=== PATIENT | male | born 1955 | race Caucasian/White ===

== ENCOUNTER 2020-06-12 07:39 | Outpatient (REF) | payer OTHER, SELFPAY ==
[2020-06-12 11:39] LABS: Glucose Urine UA NEG (NEG); Leukocyte Esterase Urine NEG (NEG); Nitrite Urine NEG (NEG); PH 5.5 (5.0-8.0); Specific Gravity - Urine >= 1.030 (1.005-1.025); Urine Blood NEG (NEG); Urine Ketones NEG (NEG); Urine Protein NEG (NEG-TRACE)
[2020-06-12 11:40] LABS: Hematocrit 41.7 % (42-52); Hemoglobin 13.5 g/dl (14.0-18.0); Mean Corpuscular HGB Conc 32.4 g/dl (31.0-36.0); Mean Corpuscular Hemoglobin 31.7 pg (27.0-33.0); Mean Corpuscular Volume 97.9 fL (80-98); Platelet Count 206 X10*3/uL (160-400); Red Blood Count 4.26 X10*6/uL (4.60-5.80); White Blood Count 5.8 X10*3/uL (4.8-10.8)
[2020-06-12 11:56] LABS: Appearance Urine CLEAR; Color Urine YELLOW
[2020-06-12 12:10] LABS: Mucus Urine 3+ /LPF; RBC Urine 0 /HPF (0); Squamous Epithelial Cell Urine TRACE /LPF; WBC Urine 0 /HPF (0-4)
[2020-06-12 12:21] LABS: Prostate Specific Antigen Scr 0.35 ng/mL (<0.05-4.0)
[2020-06-12 12:25] LABS: Alanine Aminotransferase 25 U/L (0-40); Albumin Level 4.2 g/dL (3.5-5.0); Alkaline Phosphatase 88 U/L (39-117); Anion Gap 13 (12-20); Aspartate Amino Transferase 20 U/L (5-37); Bilirubin Total 1.2 mg/dL (0.0-1.0); Blood Urea Nitrogen 25 mg/dL (9-16); Calcium 8.9 mg/dL (8.4-10.2); Carbon Dioxide 27 mmol/L (22-29); Chloride 107 mmol/L (96-108); Cholesterol 233 mg/dL; Estimated Glomerular Filt Rate > 60; Glucose Fasting 92 mg/dL (60-99); HDL Cholesterol 54 mg/dL; LDL Cholesterol Calculated 157 mg/dl; Potassium 4.3 mmol/L (3.3-5.1); Sodium 143 mmol/L (135-145); Total Protein 6.6 g/dL (6.5-8.0); Triglycerides 112 mg/dL
== END 2020-06-12 07:40 | disposition home or self-care (01) ==
LOC: HO.HMGCLDS 07:39
PROVIDERS: PCP Internal Medicine; Visit Provider Internal Medicine
DX: Z00.00 Encounter for general adult medical examination without abnormal findings (principal); Z13.220 Encounter for screening for lipoid disorders; Z12.5 Encounter for screening for malignant neoplasm of prostate
CPT/HCPCS: 36415; 80053; 80061; 81001; 84153; 85027

== ENCOUNTER 2021-04-16 08:44 | Outpatient (REF) | payer MEDICARE, SELFPAY ==
[2021-04-16 12:20] LABS: Alanine Aminotransferase 30 U/L (0-40); Albumin Level 4.2 g/dL (3.5-5.0); Alkaline Phosphatase 99 U/L (39-117); Anion Gap 12 (12-20); Aspartate Amino Transferase 16 U/L (5-37); Blood Urea Nitrogen 22 mg/dL (9-16); Calcium 9.5 mg/dL (8.4-10.2); Carbon Dioxide 29 mmol/L (22-29); Chloride 105 mmol/L (96-108); Cholesterol 188 mg/dL; Estimated Glomerular Filt Rate > 60; Glucose Fasting 89 mg/dL (60-99); HDL Cholesterol 51 mg/dL; LDL Cholesterol Calculated 115 mg/dl; Potassium 4.5 mmol/L (3.3-5.1); Sodium 141 mmol/L (135-145); Total Protein 6.5 g/dL (6.5-8.0); Triglycerides 113 mg/dL; Uric Acid 5.5 mg/dL (3.4-7.0)
== END 2021-04-16 08:45 | disposition home or self-care (01) ==
LOC: HO.HMGCLDS 08:44
PROVIDERS: PCP Internal Medicine; Visit Provider Internal Medicine
DX: E78.5 Hyperlipidemia, unspecified (principal); M10.9 Gout, unspecified
CPT/HCPCS: 36415; 80053; 80061; 84550

== ENCOUNTER 2022-06-11 08:39 | Outpatient (REF) | payer MEDICARE, SELFPAY ==
[2022-06-11 12:04] LABS: Alanine Aminotransferase 22 U/L (0-40); Albumin Level 4.1 g/dL (3.5-5.0); Alkaline Phosphatase 95 U/L (39-117); Anion Gap 11 (12-20); Aspartate Amino Transferase 19 U/L (5-37); Bilirubin Total 1.2 mg/dL (0.0-1.0); Blood Urea Nitrogen 21 mg/dL (9-16); Calcium 9.3 mg/dL (8.4-10.2); Carbon Dioxide 28 mmol/L (22-29); Chloride 106 mmol/L (96-108); Cholesterol 196 mg/dL; Estimated Glomerular Filt Rate > 60; Glucose Fasting 80 mg/dL (60-99); HDL Cholesterol 55 mg/dL; LDL Cholesterol Calculated 125 mg/dl; Potassium 4.4 mmol/L (3.3-5.1); Sodium 141 mmol/L (135-145); Total Protein 6.4 g/dL (6.5-8.0); Triglycerides 83 mg/dL
== END 2022-06-11 08:40 | disposition home or self-care (01) ==
LOC: HO.HMGCLDS 08:39
PROVIDERS: PCP Internal Medicine; Visit Provider Internal Medicine
DX: Z00.00 Encounter for general adult medical examination without abnormal findings (principal); E78.5 Hyperlipidemia, unspecified
CPT/HCPCS: 36415; 80053; 80061

== ENCOUNTER 2022-09-26 13:55 | Outpatient (REF) | payer MEDICARE, SELFPAY ==
[2022-09-26 17:15] LABS: MANUAL DIFF FLAG NO
[2022-09-26 17:23] LABS: Basophils Absolute Auto 0.1 X10*3/uL (0.0-0.2); Basophils Percent Auto 0.8 % (0-2); Eosinophils Absolute Auto 0.1 X10*3/uL (0.0-0.4); Eosinophils Percent Auto 0.8 % (0-4); Hematocrit 40.1 % (42.0-52.0); Hemoglobin 12.8 g/dl (14.0-18.0); Imm Gran Abs Auto 0.03 X10*3/uL (0.00-0.03); Imm Gran Pct Auto 0.4 % (0.0-0.4); Lymphocytes Absolute Auto 1.5 X10*3/uL (1.2-4.9); Lymphocytes Percent Auto 19.9 % (20-40); Mean Corpuscular HGB Conc 31.9 g/dl (31.0-36.0); Mean Corpuscular Hemoglobin 31.3 pg (27.0-33.0); Mean Platelet Volume 12.4 fL (9.4-12.4); Monocytes Absolute Auto 0.6 X10*3/uL (0.1-1.2); Monocytes Percent Auto 7.5 % (2-11); Neutrophils Absolute Auto 5.4 x10*3/uL (2.0-8.3); Neutrophils Percent Auto 70.6 % (45-73); Platelet Count 263 X10*3/uL (160-400); Red Blood Count 4.09 X10*6/uL (4.60-5.80); Red Cell Distribution Width 13.1 % (11.0-16.0); White Blood Count 7.6 X10*3/uL (4.8-10.8)
[2022-09-26 17:47] LABS: Alanine Aminotransferase 14 U/L (0-40); Albumin Level 4.4 g/dL (3.5-5.0); Alkaline Phosphatase 101 U/L (39-117); Anion Gap 15 (12-20); Aspartate Amino Transferase 16 U/L (5-37); Bilirubin Total 1.1 mg/dL (0.0-1.0); Blood Urea Nitrogen 26 mg/dL (9-16); Calcium 9.8 mg/dL (8.4-10.2); Carbon Dioxide 26 mmol/L (22-29); Chloride 103 mmol/L (96-108); Estimated Glomerular Filt Rate > 60; Glucose Random 156 mg/dL (60-115); Potassium 4.7 mmol/L (3.3-5.1); Sodium 139 mmol/L (135-145); Total Protein 7.1 g/dL (6.5-8.0)
[2022-09-26 18:03] LABS: TSH reflex Free T4 0.23 uIU/mL (0.32-4.0); Vitamin D 25-OH Total 35.8 ng/mL (>30)
[2022-09-26 19:07] LABS: Free T4 (Free Thyroxine) 0.85 ng/dL (0.71-1.85)
[2022-10-01 14:18] LABS: Calcium (PTHI) 9.6 mg/dL (8.6-10.3); PTHI 88 pg/mL (16-77)
== END 2022-09-26 13:56 | disposition home or self-care (01) ==
LOC: HO.HMGCLDS 13:55
PROVIDERS: PCP Internal Medicine; Visit Provider Internal Medicine
DX: S72.001A Fracture of unspecified part of neck of right femur, initial encounter for closed fracture (principal); E78.5 Hyperlipidemia, unspecified
CPT/HCPCS: 36415; 80053; 82306; 83970; 84439; 84443; 85025

== ENCOUNTER 2022-10-03 07:54 | Outpatient (REF) | payer MEDICARE, SELFPAY ==
--- NOTE | ~2022-10-03 | MM_ITS ---
EXAMINATION: BONE DENSITOMETRY CLINICAL INDICATION: Fracture of unspecified part of neck of right femur. COMPARISON: This is the patient's baseline examination. TECHNIQUE: Using a [employer] DXA System (software version: 13.1) manufactured by [employer], dual-energy x-ray absorptiometry was performed of the lumbar spine and left hip. The images are of good technical quality. Summary results are attached. FINDINGS: AP SPINE L1-L4: BMD 1.057 g/cm2, Z-score -0.7, T-score -1.4, osteopenia. LEFT FEMUR, NECK: BMD 0.667 g/cm2, Z-score -1.8, T-score -3.1, osteoporosis. LEFT FEMUR, TOTAL: BMD 0.752 g/cm2, Z-score -1.7, T-score -2.4, osteopenia. IDENTIFIED RISK FACTORS: Low body weight, history of fracture (adult). HISTORY OF FRACTURE: Hip. MEDICATIONS: Multivitamin. MM/XR DEXA axial skeleton IMPRESSION: 1. DIAGNOSIS: Severe osteoporosis based on the lowest T-score value of -3.1 in the femoral neck and history of fracture of hip applying World Health Organization criteria. 2. 10-YEAR FRACTURE RISK PREDICTION, FRAX: According to the guidelines, FRAX calculation should only be performed on patients in the osteopenia bone density category. Therefore, FRAX was not performed on this patient. 3. Treatment Recommendations: NOF guidelines recommend consideration for treatment in postmenopausal women and men age 50 and older presenting with the following: -A hip or vertebral (clinical or morphometric) fracture. -T-score less than or equal to -2.5 at the femoral neck or spine after appropriate evaluation to exclude secondary causes. -Low bone mass at the hip or spine and a 10-year fracture probability by FRAX of greater than or equal to 3% for hip fracture or greater than or equal to 20% for major osteoporotic fracture based on the [place] adapted WHO algorithm. 4. Other Recommendations: All treatment decisions require clinical judgment and consideration of individual patient factors, including patient preferences, comorbidities, previous drug use, risk factors not captured in the FRAX model (e.g. frailty, falls, vitamin D deficiency, increased bone turnover, interval significant decline in bone density) and possible under or overestimation of fracture risk by FRAX. Additional medical evaluation for secondary cause of low bone mineral density may be appropriate. FUTURE SCAN RECOMMENDATION: People with diagnosed cases of osteoporosis or at high risk for fracture should have regular bone mineral density tests. For patients eligible for Medicare, routine testing is allowed once every 2 years. The testing frequency can be increased to one year for patients who have rapidly progressing disease, those who are receiving or discontinuing medical therapy to restore bone mass, or have additional risk factors.
== END 2022-10-03 07:55 | disposition home or self-care (01) ==
LOC: HO.MAMMO 07:54
PROVIDERS: PCP Internal Medicine; Visit Provider Internal Medicine
DX: M81.0 Age-related osteoporosis without current pathological fracture (principal); S72.001A Fracture of unspecified part of neck of right femur, initial encounter for closed fracture; X58.XXXA Exposure to other specified factors, initial encounter; Y93.9 Activity, unspecified; Y92.9 Unspecified place or not applicable; Y99.9 Unspecified external cause status
CPT/HCPCS: 77080

== ENCOUNTER 2022-11-18 09:56 | Outpatient (AMB) | payer MEDICARE, SELFPAY ==
[2022-11-18 10:19] VITALS: BP 118/68; PULSE 65; O2SAT 98; BMI 23.8
--- NOTE | 2022-11-18 10:19 | A.OFFPC_ITS ---
Vital Signs 11/18/22 10:19 Height 5 ft 9 in Weight 161 lb BMI 23.8 BP 118/68 Blood Pressure Location Lt brachial Position Sitting Pulse 65 Pulse Source Pulse Oximeter Pulse Oximetry (%) 98 Oxygen Delivery Method Room Air Intake Visit Reasons: Discuss osteoporosis treatment Intake Note: Pt is here today for a follow up visit. Allergies Penicillins Allergy (Unknown, Verified 11/18/22 10:19) Unknown amoxicillin Allergy (Verified 11/18/22 10:19) very fatique erythromycin base Adverse Reaction (Unknown, Verified 11/18/22 10:19) stomach issues Medication List - Last Reconciled 11/18/22 by Tamiko Astudillo MD atorvastatin 10 mg PO .TIW lorazepam 0.5 mg PO BEDTIME PRN Tobacco use date assessed: 11/18/22 HPI Discuss osteoporosis treatment HPI Details Pt presents for osteoporosis. Pt could not tolerate alendronate developed diarrhea. Patient has been exercising regularly taking vitamin-D 3 and calcium supplement. Hyperlipidemia is controlled on statin [facility] Medical History (Updated 11/18/22 @ 11:03 by Tamiko Astudillo MD) Abdominal pain Annual physical exam Chronic sinusitis Gout Hyperlipidemia Surgical History H/O colonoscopy Family History Father CVD (cardiovascular disease) Mother No problems noted. Social History Housing: House Patient Tobacco Use Status: Never used Tobacco e-Cigarette/Vaping Use: Never Used Current occupational status: employed Cognitive needs: No Hearing needs: No Vision needs: Yes Questionnaire Thrive Questionnaire Date Thrive assessed: 09/26/22 DAVIDA-7 AMB Questionnaire DAVIDA-7 Date DAVIDA - 7 assessed: 09/26/22 Source: Developed by Drs. Sudarshan Shipman, Elise Cook, Ammon Mcqueen and colleagues, with an educational steven from [employer]. Review of Systems Const All systems reviewed & are unremarkable except as noted in HPI and below Reports no additional complaints Eyes Reports no additional complaints ENT Reports no additional complaints Card Reports no additional complaints Resp Reports no additional complaints GI Reports no additional complaints Reports no additional complaints Physical exam (Primary Care) Vital Signs: Last Vital Signs Pulse 65 11/18/22 10:19 BP 118/68 11/18/22 10:19 Pulse Ox 98 11/18/22 10:19 Oxygen Delivery Method Room Air 11/18/22 10:19 BMI result Body Mass Index 23.8 Tobacco/Smoking Status: Tobacco use Status Tobacco use date assessed 11/18/22 11/18/22 10:20 Patient Tobacco Use Status Never used Tobacco 11/18/22 10:20 e-Cigarette/Vaping Use Never Used 11/18/22 10:20 Thrive Assessment: Date of Thrive Assessment Date Thrive assessed 09/26/22 11/18/22 10:20 Neck Neck: Yes supple Resp Effort & Inspection: normal respiratory effort Auscultation: clear to auscultation bilaterally Cardio Rhythm: regular rhythm Heart sounds: S1 normal heart sound present and S2 normal heart sound present Assessment and Plan Assessment & Plan (1) Hyperglycemia: Code(s): R73.9 - Hyperglycemia, unspecified Plan: Return for fasting labs including A1c, ADA diet discussed with the patient (2) Osteoporosis: Comment: DEXA T score -3.1, 09/2022 , history of R hip fracture, intolerant to Fosamax (diarrhea) Code(s): M81.0 - Age-related osteoporosis without current pathological fracture Plan: Patient is intolerant to alendronate Reclast infusion will be scheduled. He will continue with Reclast infusion next year and have repeat DEXA in 2 years (3) Hyperlipidemia: Code(s): E78.5 - Hyperlipidemia, unspecified Plan: Continue statin, return for physical in February Orders: Orders Comprehensive [place]. Panel Fast Today R73.9 - Hyperglycemia, unspecified Hemoglobin A1c Today R73.9 - Hyperglycemia, unspecified TSH reflex Free T4 Today R73.9 - Hyperglycemia, unspecified Medications: New zoledronic thvi-lozpzvky-mxzng 5 mg/100 mL (Reclast) 100 ml intravenously once; 100 mL 0RF zoledronic zfbl-zgiajfvo-udwkb 5 mg/100 mL (Reclast) 100 ml intravenously once; 100 mL 0RF Discontinued alendronate Discontinued Reason: Doctor's Order 70 mg PO QWEEK 14 tabs 3RF Coding Level of Care Code Est Pt Level 4 (86552) Diagnoses Hyperglycemia R73.9 Osteoporosis M81.0 Hyperlipidemia E78.5
== END 2022-11-18 11:03 | disposition home or self-care (01) ==
PROVIDERS: PCP Internal Medicine; Visit Provider Internal Medicine
DX: R73.9 Hyperglycemia, unspecified (principal); M81.0 Age-related osteoporosis without current pathological fracture; E78.5 Hyperlipidemia, unspecified
CPT/HCPCS: 99214

== ENCOUNTER 2022-11-27 08:09 | Outpatient (REF) | payer MEDICARE, SELFPAY ==
[2022-11-27 11:41] LABS: Estimated Average Glucose 103 mg/dL; Hemoglobin A1c % 5.2 %
[2022-11-27 12:10] LABS: Alanine Aminotransferase 14 U/L (0-40); Albumin Level 4.2 g/dL (3.5-5.0); Alkaline Phosphatase 94 U/L (39-117); Anion Gap 11 (12-20); Aspartate Amino Transferase 16 U/L (5-37); Blood Urea Nitrogen 23 mg/dL (9-16); Calcium 9.3 mg/dL (8.4-10.2); Carbon Dioxide 24 mmol/L (22-29); Chloride 110 mmol/L (96-108); Estimated Glomerular Filt Rate > 60; Glucose Fasting 87 mg/dL (60-99); Potassium 4.1 mmol/L (3.3-5.1); Sodium 141 mmol/L (135-145); TSH reflex Free T4 0.33 uIU/mL (0.32-4.0); Total Protein 6.7 g/dL (6.5-8.0)
== END 2022-11-27 08:10 | disposition home or self-care (01) ==
LOC: HO.HMGCLDS 08:09
PROVIDERS: PCP Internal Medicine; Visit Provider Internal Medicine
DX: R73.9 Hyperglycemia, unspecified (principal)
CPT/HCPCS: 36415; 80053; 83036; 84443

== ENCOUNTER 2022-12-05 07:58 | Outpatient (AMB) | payer MEDICARE, SELFPAY ==
[2022-12-05 08:11] VITALS: BP 128/70; PULSE 64; O2SAT 98; BMI 23.6
--- NOTE | 2022-12-05 08:11 | MHC.PC.OV ---
Vital Signs 12/05/22 08:11 Height 5 ft 9 in Weight 160 lb BMI 23.6 BP 128/70 Blood Pressure Location Lt brachial Position Sitting Pulse 64 Pulse Source Pulse Oximeter Pulse Oximetry (%) 98 Oxygen Delivery Method Room Air Intake Visit Reasons: Follow up to discuss medication Intake Note: Pt is here today for a follow up visit to discuss Reclast medication. Allergies Penicillins Allergy (Unknown, Verified 12/05/22 08:26) Unknown amoxicillin Allergy (Verified 12/05/22 08:26) very fatique erythromycin base Adverse Reaction (Unknown, Verified 12/05/22 08:26) stomach issues Tobacco use date assessed: 11/18/22 HPI Follow up to discuss medication HPI Details Patient presents to discuss treatment for osteoporosis. He could not tolerate Fosamax, caused diarrhea. Patient is concerned about Reclast infusion and prefers to start regular exercise and repeat DEXA in 2 years. [facility] Medical History Abdominal pain Annual physical exam Chronic sinusitis Gout Hyperlipidemia Surgical History H/O colonoscopy Family History Father CVD (cardiovascular disease) Mother No problems noted. Social History Housing: House Patient Tobacco Use Status: Never used Tobacco e-Cigarette/Vaping Use: Never Used Current occupational status: employed Cognitive needs: No Hearing needs: No Vision needs: Yes Questionnaire Thrive Questionnaire Date Thrive assessed: 09/26/22 DAVIDA-7 AMB Questionnaire DAVIDA-7 Date DAVIDA - 7 assessed: 09/26/22 Source: Developed by Drs. Sudarshan Shipman, Elise Cook, Ammon Mcqueen and colleagues, with an educational steven from [employer]. Review of Systems Const All systems reviewed & are unremarkable except as noted in HPI and below Reports no additional complaints Eyes Reports no additional complaints ENT Reports no additional complaints Card Reports no additional complaints Resp Reports no additional complaints GI Reports no additional complaints Physical exam (Primary Care) Vital Signs: Last Vital Signs Pulse 64 12/05/22 08:11 BP 128/70 12/05/22 08:11 Pulse Ox 98 12/05/22 08:11 Oxygen Delivery Method Room Air 12/05/22 08:11 BMI result Body Mass Index 23.6 Tobacco/Smoking Status: Tobacco use Status Tobacco use date assessed 11/18/22 12/05/22 08:11 Patient Tobacco Use Status Never used Tobacco 12/05/22 08:11 e-Cigarette/Vaping Use Never Used 12/05/22 08:11 Thrive Assessment: Date of Thrive Assessment Date Thrive assessed 09/26/22 12/05/22 08:11 Resp Effort & Inspection: normal respiratory effort Auscultation: clear to auscultation bilaterally Cardio Rhythm: regular rhythm Heart sounds: S1 normal heart sound present and S2 normal heart sound present Assessment and Plan Assessment & Plan (1) Osteoporosis: Comment: DEXA T score -3.1, 09/2022 , history of R hip fracture, intolerant to Fosamax (diarrhea), patient declined Reclast infusion. He will start regular exercise and repeat DEXA in 2 years Code(s): M81.0 - Age-related osteoporosis without current pathological fracture Coding Level of Care Code Est Pt Level 3 (93068) Diagnoses Osteoporosis M81.0
== END 2022-12-05 08:46 | disposition home or self-care (01) ==
PROVIDERS: PCP Internal Medicine; Visit Provider Internal Medicine
DX: M81.0 Age-related osteoporosis without current pathological fracture (principal)
CPT/HCPCS: 99213

== ENCOUNTER 2023-03-31 13:34 | Outpatient (AMB) | payer MEDICARE, SELFPAY ==
--- NOTE | 2023-03-31 13:55 | A.OFFPC_ITS ---
Vital Signs 03/31/23 13:56 Height 5 ft 9 in Weight 166 lb BMI 24.5 BP 122/64 Blood Pressure Location Lt brachial Position Sitting Pulse 68 Pulse Source Pulse Oximeter Pulse Oximetry (%) 96 Oxygen Delivery Method Room Air Intake Visit Reasons: Discuss Labs Intake Note: Pt is here today for a follow up visit. Allergies Penicillins Allergy (Unknown, Verified 03/31/23 13:58) Unknown amoxicillin Allergy (Verified 03/31/23 13:58) very fatique erythromycin base Adverse Reaction (Unknown, Verified 03/31/23 13:58) stomach issues Medication List - Last Reconciled 03/31/23 by Tamiko Astudillo MD alendronate (Fosamax) 70 mg PO QWEEK atorvastatin 10 mg PO .TIW lorazepam 0.5 mg PO BEDTIME PRN Tobacco use date assessed: 11/18/22 HPI Discuss Labs HPI Details Pt presents for f/u hyperlipid, stable on Atorvastatin. PFSH Medical History Abdominal pain Annual physical exam Chronic sinusitis Gout Hyperlipidemia Surgical History H/O colonoscopy Family History Father CVD (cardiovascular disease) Mother No problems noted. Social History Housing: House Patient Tobacco Use Status: Never used Tobacco e-Cigarette/Vaping Use: Never Used Current occupational status: employed Cognitive needs: No Hearing needs: No Vision needs: Yes Questionnaire Thrive Questionnaire Date Thrive assessed: 09/26/22 DAVIDA-7 AMB Questionnaire DAVIDA-7 Date DAVIDA - 7 assessed: 09/26/22 Source: Developed by Drs. Sudarshan Shipman, Elise Cook, Ammon Mcqueen and colleagues, with an educational steven from [employer]. Review of Systems Const All systems reviewed & are unremarkable except as noted in HPI and below Reports no additional complaints Eyes Reports no additional complaints ENT Reports no additional complaints Card Reports no additional complaints Resp Reports no additional complaints GI Reports no additional complaints Reports no additional complaints Physical exam (Primary Care) Vital Signs: Last Vital Signs Pulse 68 03/31/23 13:56 BP 122/64 03/31/23 13:56 Pulse Ox 96 03/31/23 13:56 Oxygen Delivery Method Room Air 03/31/23 13:56 BMI result Body Mass Index 24.5 Tobacco/Smoking Status: Tobacco use Status Tobacco use date assessed 11/18/22 03/31/23 14:01 Patient Tobacco Use Status Never used Tobacco 03/31/23 14:01 e-Cigarette/Vaping Use Never Used 03/31/23 14:01 Thrive Assessment: Date of Thrive Assessment Date Thrive assessed 09/26/22 03/31/23 14:01 Const General: no acute distress HENMT Head: Yes normal to inspection Face and sinus: Yes normal facial exam Neck Neck: Yes no lymphadenopathy and Yes supple Resp Effort & Inspection: normal respiratory effort Auscultation: clear to auscultation bilaterally Cardio Rhythm: regular rhythm Heart sounds: S1 normal heart sound present and S2 normal heart sound present GI Inspection: Yes normal to inspection Palpation (GI): Soft to palpation Percussion: Yes normal to percussion Assessment and Plan Assessment & Plan (1) Osteoporosis: Comment: DEXA T score -3.1, 09/2022 , history of R hip fracture, try Fosamax 04/04 Code(s): M81.0 - Age-related osteoporosis without current pathological fracture Plan: start Fosamax and cont vit D (2) Hyperglycemia: Code(s): R73.9 - Hyperglycemia, unspecified Plan: A1C is 5.2, ADA diet, (3) Hip fracture, right: Comment: 07/03, s/p ORIF, [facility] Code(s): S72.001A - Fracture of unspecified part of neck of right femur, initial encounter for closed fracture Plan: cont exercise (4) Hyperlipidemia: Code(s): E78.5 - Hyperlipidemia, unspecified Plan: cont [place] (5) Annual physical exam: Code(s): Z00.00 - Encounter for general adult medical examination without abnormal findings Orders: Orders Comprehensive [place]. Panel Fast 3 Months E78.5 - Hyperlipidemia, unspecified, M81.0 - Age-related osteoporosis without current pathological fracture, R73.9 - Hyperglycemia, unspecified, S72.001A - Fracture of unspecified part of neck of right femur, initial encounter for closed fracture, Z00.00 - Encounter for general adult medical examination without abnormal findings Lipid Panel 3 Months E78.5 - Hyperlipidemia, unspecified, M81.0 - Age-related osteoporosis without current pathological fracture, R73.9 - Hyperglycemia, unspecified, S72.001A - Fracture of unspecified part of neck of right femur, initial encounter for closed fracture, Z00.00 - Encounter for general adult medical examination without abnormal findings UA w Microscopic 3 Months E78.5 - Hyperlipidemia, unspecified, M81.0 - Age- related osteoporosis without current pathological fracture, R73.9 - Hyperglycemia, unspecified, S72.001A - Fracture of unspecified part of neck of right femur, initial encounter for closed fracture, Z00.00 - Encounter for general adult medical examination without abnormal findings Complete Blood Count Auto Diff 3 Months E78.5 - Hyperlipidemia, unspecified, M81.0 - Age-related osteoporosis without current pathological fracture, R73.9 - Hyperglycemia, unspecified, S72.001A - Fracture of unspecified part of neck of right femur, initial encounter for closed fracture, Z00.00 - Encounter for general adult medical examination without abnormal findings PSA,Total (Free>4and<10) 3 Months E78.5 - Hyperlipidemia, unspecified, M81.0 - Age-related osteoporosis without current pathological fracture, R73.9 - Hyperglycemia, unspecified, S72.001A - Fracture of unspecified part of neck of right femur, initial encounter for closed fracture, Z00.00 - Encounter for general adult medical examination without abnormal findings Vitamin D 25-OH Total 3 Months E78.5 - Hyperlipidemia, unspecified, M81.0 - Age- related osteoporosis without current pathological fracture, R73.9 - Hyperglycemia, unspecified, S72.001A - Fracture of unspecified part of neck of right femur, initial encounter for closed fracture, Z00.00 - Encounter for general adult medical examination without abnormal findings IRON PROFILE 3 Months E78.5 - Hyperlipidemia, unspecified, M81.0 - Age-related osteoporosis without current pathological fracture, R73.9 - Hyperglycemia, unspecified, S72.001A - Fracture of unspecified part of neck of right femur, initial encounter for closed fracture, Z00.00 - Encounter for general adult medical examination without abnormal findings TSH reflex Free T4 3 Months E78.5 - Hyperlipidemia, unspecified, M81.0 - Age- related osteoporosis without current pathological fracture, R73.9 - Hyperglycemia, unspecified, S72.001A - Fracture of unspecified part of neck of right femur, initial encounter for closed fracture, Z00.00 - Encounter for general adult medical examination without abnormal findings Collagen Crosslinks NTX 3 Months E78.5 - Hyperlipidemia, unspecified, M81.0 - Age-related osteoporosis without current pathological fracture, R73.9 - Hyperglycemia, unspecified, S72.001A - Fracture of unspecified part of neck of right femur, initial encounter for closed fracture, Z00.00 - Encounter for general adult medical examination without abnormal findings Medications: New alendronate (Fosamax) 70 mg PO QWEEK 14 tabs 3RF Coding Level of Care Code Est Pt Level 4 (31576) Diagnoses Osteoporosis M81.0 Hyperglycemia R73.9 Hip fracture, right S72.001A Hyperlipidemia E78.5 Annual physical exam Z00.00
[2023-03-31 13:56] VITALS: BP 122/64; PULSE 68; O2SAT 96; BMI 24.5
== END 2023-03-31 14:51 | disposition home or self-care (01) ==
PROVIDERS: PCP Internal Medicine; Visit Provider Internal Medicine
DX: M81.0 Age-related osteoporosis without current pathological fracture (principal); R73.9 Hyperglycemia, unspecified; S72.001A Fracture of unspecified part of neck of right femur, initial encounter for closed fracture; E78.5 Hyperlipidemia, unspecified; Z00.00 Encounter for general adult medical examination without abnormal findings
CPT/HCPCS: 99214

== ENCOUNTER 2024-01-20 07:48 | Outpatient (REF) | payer MEDICARE, SELFPAY ==
[2024-01-20 09:56] LABS: MANUAL DIFF FLAG NO
[2024-01-20 10:07] LABS: Basophils Percent Auto 0.6 % (0-2); Eosinophils Absolute Auto 0.1 X10*3/uL (0.0-0.4); Eosinophils Percent Auto 1.7 % (0-4); Hematocrit 39.2 % (42.0-52.0); Hemoglobin 12.9 g/dl (14.0-18.0); Imm Gran Abs Auto 0.02 X10*3/uL (0.00-0.03); Imm Gran Pct Auto 0.3 % (0.0-0.4); Lymphocytes Absolute Auto 1.4 X10*3/uL (1.2-4.9); Lymphocytes Percent Auto 21.2 % (20-40); Mean Corpuscular HGB Conc 32.9 g/dl (31.0-36.0); Mean Corpuscular Hemoglobin 32.2 pg (27.0-33.0); Mean Corpuscular Volume 97.8 fL (80.0-98.0); Mean Platelet Volume 12.3 fL (9.4-12.4); Monocytes Absolute Auto 0.6 X10*3/uL (0.1-1.2); Monocytes Percent Auto 9.2 % (2-11); Neutrophils Absolute Auto 4.3 x10*3/uL (2.0-8.3); Platelet Count 245 X10*3/uL (160-400); Red Blood Count 4.01 X10*6/uL (4.60-5.80); Red Cell Distribution Width 13.2 % (11.0-16.0); White Blood Count 6.4 X10*3/uL (4.8-10.8)
[2024-01-20 10:22] LABS: Appearance Urine Clear; Color Urine Yellow; Glucose Urine UA Negative (Negative); Leukocyte Esterase Urine Negative (Negative); Nitrite Urine Negative (Negative); PH 6.5 (5.0-9.0); Specific Gravity - Urine 1.015 (1.005-1.025); Urine Blood Negative (Negative); Urine Ketones Negative (Negative); Urine Protein Negative (Neg-Trace)
[2024-01-20 10:30] LABS: Bacteria Urine None Seen (None Seen); Hyaline Casts Urine 0-2 /LPF (0-2); RBC Urine 0-2 /HPF (0-2); Squamous Epithelial Cell Urine 0-2 /HPF (0-2); WBC Urine 0-5 /HPF (0-5)
[2024-01-20 10:31] LABS: Alanine Aminotransferase 18 U/L (0-40); Albumin Level 4.1 g/dL (3.5-5.0); Alkaline Phosphatase 94 U/L (39-117); Anion Gap 9 (12-20); Aspartate Amino Transferase 18 U/L (5-37); Bilirubin Total 0.8 mg/dL (0.0-1.0); Blood Urea Nitrogen 15 mg/dL (9-16); Carbon Dioxide 29 mmol/L (22-29); Chloride 108 mmol/L (96-108); Cholesterol 174 mg/dL (<200); Estimated Glomerular Filt Rate > 60; Glucose Fasting 91 mg/dL (60-99); HDL Cholesterol 56 mg/dL (>40); Iron 111 mcg/dL (45-160); LDL Cholesterol Calculated 101 mg/dL (<100); Percent Iron Saturation 46 % (15-50); Potassium 4.1 mmol/L (3.3-5.1); Sodium 142 mmol/L (135-145); Total Iron Binding Capacity 243 mcg/dL (228-428); Total Protein 6.5 g/dL (6.5-8.0); Triglycerides 89 mg/dL (<150); Unsaturated Iron Binding 132 ug/dL
[2024-01-20 10:33] LABS: PSA,Total (Free>4and<10) 0.47 ng/mL (0.00-4.00)
[2024-01-20 10:49] LABS: TSH reflex Free T4 0.16 uIU/mL (0.32-4.0)
[2024-01-20 12:24] LABS: Free T4 (Free Thyroxine) 0.97 ng/dL (0.71-1.85)
[2024-01-26 15:19] LABS: N-Telopeptide 35 (see note); NTXCreaRU 108 mg/dL (20-320)
== END 2024-01-20 07:49 | disposition home or self-care (01) ==
LOC: HO.HMGCLDS 07:48
PROVIDERS: PCP Internal Medicine; Visit Provider Internal Medicine
DX: Z00.00 Encounter for general adult medical examination without abnormal findings (principal); M81.0 Age-related osteoporosis without current pathological fracture; R73.9 Hyperglycemia, unspecified; S72.001A Fracture of unspecified part of neck of right femur, initial encounter for closed fracture; E78.5 Hyperlipidemia, unspecified; Z12.5 Encounter for screening for malignant neoplasm of prostate
CPT/HCPCS: 36415; 80053; 80061; 81001; 82306; 82523; 83540; 84153; 84439; 84443; 85025

== ENCOUNTER 2024-01-27 08:45 | Outpatient (AMB) | payer MEDICARE, SELFPAY ==
[2024-01-27 08:55] VITALS: BP 110/68; PULSE 55; O2SAT 96; BMI 24.7
--- NOTE | 2024-01-27 08:55 | MHC.PC.OV ---
Vital Signs 01/27/24 08:55 Height 5 ft 9 in Weight 167 lb BMI 24.7 BP 110/68 Blood Pressure Location Rt brachial Position Sitting Pulse 55 Pulse Source Pulse Oximeter Pulse Oximetry (%) 96 Oxygen Delivery Method Room Air Intake Visit Reasons: Annual PE Intake Note: Pt is here today for PE. Allergies Penicillins Allergy (Unknown, Verified 01/27/24 09:24) Unknown amoxicillin Allergy (Verified 01/27/24 09:24) very fatique erythromycin base Adverse Reaction (Unknown, Verified 01/27/24 09:24) stomach issues Medication List - Last Reconciled 01/27/24 by Tamiko Astudillo MD atorvastatin 10 mg PO .TIW lorazepam 0.5 mg PO BEDTIME PRN Tobacco use date assessed: 01/27/24 Fall risk assessment: 1 Fall in past year Last assessed Fall Risk: 01/27/24 Dental Screening Dental Screen Date: 01/27/24 Did you have a dental visit in the last 12 months?: Yes Did you have a dental problem in the last 6 months where you did not have access to dental care?: No Was dental information given to patient?: Patient has dentist HPI Annual PE HPI Details Pt presents for PE. PFSH Medical History (Updated 01/27/24 @ 11:40 by Tamiko Astudillo MD) Gout Abdominal pain Annual physical exam Chronic sinusitis Hyperlipidemia Surgical History (Updated 01/27/24 @ 11:42 by Tamiko Astudillo MD) H/O colonoscopy Family History Father CVD (cardiovascular disease) Mother No problems noted. Social History Housing: House Patient Tobacco Use Status: Never used Tobacco e-Cigarette/Vaping Use: Never Used service: No Current occupational status: employed Cognitive needs: No Hearing needs: No Vision needs: Yes Questionnaire PHQ-9 Over the last 2 weeks, how often have you been bothered by any of the following problems? 1. Little interest or pleasure in doing things: not at all 2. Feeling down, depressed, or hopeless: not at all 3. Trouble falling or staying asleep, or sleeping too much: not at all 4. Feeling tired or having little energy: several days 5. Poor appetite or overeating: not at all 6. Feeling bad about yourself - or that you are a failure or have let yourself or your family down: not at all 7. Trouble concentrating on things, such as reading the newspaper or watching television: not at all 8. Moving or speaking so slowly that other people could have noticed. Or the opposite - being so fidgety or restless that you have been moving around a lot more than usual: not at all 9. Thoughts that you would be better off or of hurting yourself in some way: not at all Total score: 1 Depression Screening Interpretation: Negative Depression Screening Done: Yes 33452 - PHQ-9 Billing: Yes Source: Developed by Drs. Sudarshan Shipman, Elise Cook, Ammon Mcqueen and colleagues, with an educational steven from [employer]. Thrive Questionnaire Date Thrive assessed: 01/27/24 I am a: Patient What is your living situation today?: I have a steady place to live Within the past 12 months, did the food you bought not last and you didn't have the money to get more?: Never true Within the past 12 months, did you worry whether your food would run out before you got money to buy more?: Never true Do you have trouble paying for medicines?: No Do you have trouble getting transportation to medical appointments?: No Do you have trouble paying your heating and electricity bill?: No Do you have trouble taking care of your child, family member or friend?: No Do you have trouble with day-to-day activities such as bathing, preparing meals, shopping, managing finances, etc.?: No Are you currently unemployed and looking for a job?: No Are you interested in more education?: No Please select the resources that you would like help with: None Currently or been in a relationship where the following occur: No concerns reported THRIVE Score: 0 AUDIT C Alcohol Use Questionnaire (AUDIT-C) 1. How often do you have a drink containing alcohol?: Monthly or less 2. How many drinks containing alcohol do you have on a typical day when you are drinking?: 1 or 2 3. How often do you have six or more drinks on one occasion?: Never Total Score: 1 DAVIDA-7 AMB Questionnaire DAVIDA-7 Date DAVIDA - 7 assessed: 01/27/24 Feeling nervous, anxious, or on edge: 0 = Not at all Not being able to stop or control worryin = Not at all Worrying too much about different things: 0 = Not at all Trouble relaxin = Several days Being so restless that it is hard to sit still: 0 = Not at all Becoming easily annoyed or irritable: 0 = Not at all Feeling afraid as if something awful might happen: 0 = Not at all Total DAVIDA-7 score (0-4 normal; 5-9 mild; 10-14 moderate; 15-21 severe): 1 Source: Developed by Drs. Suadrshan Shipman, Elise Cook, Ammon Mcqueen and colleagues, with an educational steven from [employer]. DAVIDA-7 Assessment Billing DAVIDA-7 Assessment Tool: DAVIDA-7 Assessment 26544 Review of Systems Const All systems reviewed & are unremarkable except as noted in HPI and below Eyes Reports no additional complaints ENT Reports no additional complaints Card Reports no additional complaints Resp Reports no additional complaints GI Reports no additional complaints Reports no additional complaints Physical exam (Primary Care) Vital Signs: Last Vital Signs Pulse 55 01/27/24 08:55 BP 110/68 01/27/24 08:55 Pulse Ox 96 01/27/24 08:55 Oxygen Delivery Method Room Air 01/27/24 08:55 BMI result Body Mass Index 24.7 Tobacco/Smoking Status: Tobacco use Status Tobacco use date assessed 01/27/24 01/27/24 09:27 Patient Tobacco Use Status Never used Tobacco 01/27/24 08:55 e-Cigarette/Vaping Use Never Used 01/27/24 08:55 PHQ-9: PHQ-9 Score PHQ-9: Total score 1 01/27/24 09:27 Depression Screening Interpretation: Negative Thrive Assessment: Date of Thrive Assessment Date Thrive assessed 01/27/24 01/27/24 09:27 Currently or been in a relationship where the following occur: No concerns reported Const General: no acute distress HENMT Head: Yes normal to inspection Ears: hearing grossly normal bilaterally Face and sinus: Yes normal facial exam Throat: Yes posterior oropharynx normal Eyes General: appearance normal, both eyes and all related structures Neck Neck: Yes no lymphadenopathy and Yes supple Resp Effort & Inspection: normal respiratory effort Auscultation: clear to auscultation bilaterally Cardio Rhythm: regular rhythm Heart sounds: S1 normal heart sound present and S2 normal heart sound present GI Inspection: Yes normal to inspection Palpation (GI): Soft to palpation Percussion: Yes normal to percussion Auscultation: normal bowel sounds Coding Level of Care Code Est Pt Prev Care >65y(87795) Diagnoses Hyperthyroidism E05.90 Hip fracture, right S72.001A Osteoporosis M81.0 Annual physical exam Z00.00 H/O colonoscopy Z98.890 Additional Codes DAVIDA-7 Assessment Billing - DAVIDA-7 Assessment Tool: DAVIDA-7 Assessment 65362 ([id number]) Assessment & Plan Assessment & Plan (1) Hyperthyroidism: Comment: Subclinical hyperthyroid Code(s): E05.90 - Thyrotoxicosis, unspecified without thyrotoxic crisis or storm Category: Medical Plan: Obtains thyroid nuclear scan to evaluate for hyperactive nodules, repeat TSH in 6 months and a year (2) Hip fracture, right: Comment: 07/03, s/p ORIF, [facility], Code(s): S72.001A - Fracture of unspecified part of neck of right femur, initial encounter for closed fracture Category: Medical Plan: Patient declined treating osteoporosis, increasing physical activity weight-bearing exercises (3) Osteoporosis: Comment: DEXA T score -3.1, 09/2022 , history of R hip fracture, pt declined tx 01/2024 Code(s): M81.0 - Age-related osteoporosis without current pathological fracture Category: Medical Plan: Patient declined treating osteoporosis. He will continue vitamin-D weight-bearing exercises and repeat DEXA in 1 year (4) Annual physical exam: Code(s): Z00.00 - Encounter for general adult medical examination without abnormal findings Category: Medical Plan: Well-balanced diet regular physical activity discussed with the patient. (5) H/O colonoscopy: Comment: 06/2017 Dr. López [facility] in 7 years Code(s): Z98.890 - Other specified postprocedural states Category: Surgical Plan: Patient is established with GI Orders: Orders NM thyroid w uptake Today E05.90 - Thyrotoxicosis, unspecified without thyrotoxic crisis or storm Vitamin D 25-OH Total 6 Months E05.90 - Thyrotoxicosis, unspecified without thyrotoxic crisis or storm, M81.0 - Age-related osteoporosis without current pathological fracture, R53.83 - Other fatigue, S72.001A - Fracture of unspecified part of neck of right femur, initial encounter for closed fracture Parathyroid Hormone Intact 6 Months E0. - Thyrotoxicosis, unspecified without thyrotoxic crisis or storm, M81.0 - Age-related osteoporosis without current pathological fracture, R53.83 - Other fatigue, S72.001A - Fracture of unspecified part of neck of right femur, initial encounter for closed fracture TSH reflex Free T4 6 Months E0. - Thyrotoxicosis, unspecified without thyrotoxic crisis or storm, M81.0 - Age-related osteoporosis without current pathological fracture, R53.83 - Other fatigue, S72.001A - Fracture of unspecified part of neck of right femur, initial encounter for closed fracture Triiodothyronine T3 Free 6 Months E0. - Thyrotoxicosis, unspecified without thyrotoxic crisis or storm, M81.0 - Age-related osteoporosis without current pathological fracture, R53.83 - Other fatigue, S72.001A - Fracture of unspecified part of neck of right femur, initial encounter for closed fracture Testosterone, Free/Total 6 Months E0. - Thyrotoxicosis, unspecified without thyrotoxic crisis or storm, M81.0 - Age-related osteoporosis without current pathological fracture, R53.83 - Other fatigue, S72.001A - Fracture of unspecified part of neck of right femur, initial encounter for closed fracture Comprehensive [place]. Panel Fast 1 Year - Thyrotoxicosis, unspecified without thyrotoxic crisis or storm, E78.5 - Hyperlipidemia, unspecified, M81.0 - Age-related osteoporosis without current pathological fracture, Z00.00 - Encounter for general adult medical examination without abnormal findings Complete Blood Count Auto Diff 1 Year E0 - Thyrotoxicosis, unspecified without thyrotoxic crisis or storm, E78.5 - Hyperlipidemia, unspecified, M81.0 - Age-related osteoporosis without current pathological fracture, Z00.00 - Encounter for general adult medical examination without abnormal findings Lipid Panel 1 Year - Thyrotoxicosis, unspecified without thyrotoxic crisis or storm, E78.5 - Hyperlipidemia, unspecified, M81.0 - Age-related osteoporosis without current pathological fracture, Z00.00 - Encounter for general adult medical examination without abnormal findings UA w Microscopic 1 Year E05.90 - Thyrotoxicosis, unspecified without thyrotoxic crisis or storm, E78.5 - Hyperlipidemia, unspecified, M81.0 - Age-related osteoporosis without current pathological fracture, Z00.00 - Encounter for general adult medical examination without abnormal findings TSH reflex Free T4 1 Year E05. - Thyrotoxicosis, unspecified without thyrotoxic crisis or storm, E78.5 - Hyperlipidemia, unspecified, M81.0 - Age-related osteoporosis without current pathological fracture, Z00.00 - Encounter for general adult medical examination without abnormal findings Vitamin D 25-OH Total 1 Year E05.90 - Thyrotoxicosis, unspecified without thyrotoxic crisis or storm, E78.5 - Hyperlipidemia, unspecified, M81.0 - Age-related osteoporosis without current pathological fracture, Z00.00 - Encounter for general adult medical examination without abnormal findings
== END 2024-01-27 11:43 | disposition home or self-care (01) ==
PROVIDERS: PCP Internal Medicine; Visit Provider Internal Medicine
DX: E05.90 Thyrotoxicosis, unspecified without thyrotoxic crisis or storm (principal); S72.001A Fracture of unspecified part of neck of right femur, initial encounter for closed fracture; M81.0 Age-related osteoporosis without current pathological fracture; Z00.00 Encounter for general adult medical examination without abnormal findings; Z98.890 Other specified postprocedural states

== ENCOUNTER → 2024-01-27 08:45 | Outpatient (BNVA) | payer MEDICARE, SELFPAY | PROVIDERS: PCP Internal Medicine; Visit Provider Internal Medicine | DX: Z00.01 Encounter for general adult medical examination with abnormal findings (principal); E05.90 Thyrotoxicosis, unspecified without thyrotoxic crisis or storm; S72.001A Fracture of unspecified part of neck of right femur, initial encounter for closed fracture; M81.0 Age-related osteoporosis without current pathological fracture; Z98.890 Other specified postprocedural states | CPT/HCPCS: 96127; 99397 ==

== ENCOUNTER → 2024-03-31 09:10 | Outpatient (REF) | payer MEDICARE, SELFPAY | LOC: HO.NUCMED 09:10 | PROVIDERS: PCP Internal Medicine; Visit Provider Internal Medicine | DX: E05.90 Thyrotoxicosis, unspecified without thyrotoxic crisis or storm (principal) | CPT/HCPCS: 78014; A9512; A9516 ==

== ENCOUNTER → 2024-03-31 09:12 | Outpatient (BNV) | payer MEDICARE, SELFPAY | PROVIDERS: PCP Internal Medicine; Visit Provider Radiology Diagnostic Radiology | DX: I51.7 Cardiomegaly (principal) | CPT/HCPCS: 78014 ==

== ENCOUNTER 2024-12-20 09:18 | Outpatient (AMB) | payer MEDICARE, SELFPAY ==
[2024-12-20 09:20] VITALS: BP 122/70; PULSE 67; RESP 18; TEMP 36.7; O2SAT 99; BMI 23.5
--- NOTE | 2024-12-20 09:20 | MHC.PC.OV ---
Vital Signs 12/20/24 09:20 Height 5 ft 9 in Weight 159 lb BMI 23.5 BP 122/70 Blood Pressure Location Lt brachial Position Sitting Respiration 18 Pulse 67 Pulse Source Pulse Oximeter Temp 98.0 F Temp Source Oral Pulse Oximetry (%) 99 Oxygen Delivery Method Room Air Intake Visit Reasons: feeling dizzy Intake Note: Pt is here today for a sick visit. Pt c/o feeling dizzy and headaches for 2 weeks now. Allergies Penicillins Allergy (Unknown, Verified 12/20/24 09:22) Unknown amoxicillin Allergy (Verified 12/20/24 09:22) very fatique erythromycin base Adverse Reaction (Unknown, Verified 12/20/24 09:22) stomach issues Medication List - Last Reconciled 12/20/24 by Tamiko Astudillo MD atorvastatin 10 mg PO .TIW lorazepam 0.5 mg PO BEDTIME PRN Tobacco use date assessed: 12/20/24 Fall risk assessment: No Falls in past year Last assessed Fall Risk: 12/20/24 Dental Screening Dental Screen Date: 12/20/24 Did you have a dental visit in the last 12 months?: Yes Did you have a dental problem in the last 6 months where you did not have access to dental care?: No Was dental information given to patient?: Patient has dentist HPI feeling dizzy HPI Details Pt c/o nasal and sinus congestion , postnasal drip intermittent headaches getting worse over last few weeks. Patient was diagnosed with seasonal allergies and completed immunotherapy in 2019. Patient was taking Zyrtec but stopped about 6 months ago. Patient has an appointment with the vehicle window tinter next week. He denies fever chills sore throat nasal purulent discharge. Patient reports dyspnea on exertion and feeling tired for the last few months. He denies exercise-induced chest pain palpitations PND or orthopnea but is concerned because his father from a heart attack. Patient has been taking Lipitor for hyperlipidemia [facility] Medical History (Updated 12/20/24 @ 10:01 by Tamiko Astudillo MD) Seasonal allergies GRANT (dyspnea on exertion) Gout Abdominal pain Annual physical exam Chronic sinusitis Hyperlipidemia Surgical History H/O colonoscopy Family History Father CVD (cardiovascular disease) Mother No problems noted. Social History Housing: House Patient Tobacco Use Status: Never used Tobacco e-Cigarette/Vaping Use: Never Used service: No Current occupational status: employed Cognitive needs: No Hearing needs: No Vision needs: Yes Questionnaire PHQ-9 Over the last 2 weeks, how often have you been bothered by any of the following problems? 1. Little interest or pleasure in doing things: not at all 2. Feeling down, depressed, or hopeless: not at all 3. Trouble falling or staying asleep, or sleeping too much: not at all 4. Feeling tired or having little energy: several days 5. Poor appetite or overeating: not at all 6. Feeling bad about yourself - or that you are a failure or have let yourself or your family down: not at all 7. Trouble concentrating on things, such as reading the newspaper or watching television: not at all 8. Moving or speaking so slowly that other people could have noticed. Or the opposite - being so fidgety or restless that you have been moving around a lot more than usual: not at all 9. Thoughts that you would be better off or of hurting yourself in some way: not at all Total score: 1 Depression Screening Interpretation: Negative Depression Screening Done: Yes 88885 - PHQ-9 Billing: Yes Source: Developed by Drs. Sudarshan Shipman, Elise Cook, Ammon Mcqueen and colleagues, with an educational steven from [employer]. Thrive Questionnaire Date Thrive assessed: 12/17/24 I am a: Patient What is your living situation today?: I have a steady place to live Within the past 12 months, did the food you bought not last and you didn't have the money to get more?: Never true Within the past 12 months, did you worry whether your food would run out before you got money to buy more?: Never true Do you have trouble paying for medicines?: No Do you have trouble getting transportation to medical appointments?: No Do you have trouble paying your heating and electricity bill?: No Do you have trouble taking care of your child, family member or friend?: No Do you have trouble with day-to-day activities such as bathing, preparing meals, shopping, managing finances, etc.?: No Are you currently unemployed and looking for a job?: No Are you interested in more education?: No Please select the resources that you would like help with: None Currently or been in a relationship where the following occur: No concerns reported THRIVE Score: 0 AUDIT C Alcohol Use Questionnaire (AUDIT-C) 1. How often do you have a drink containing alcohol?: 2-4 times a month 2. How many drinks containing alcohol do you have on a typical day when you are drinking?: 1 or 2 3. How often do you have six or more drinks on one occasion?: Never Total Score: 2 DAVIDA-7 AMB Questionnaire DAVIDA-7 Date DAVIDA - 7 assessed: 12/20/24 Feeling nervous, anxious, or on edge: 1 = Several days Not being able to stop or control worryin = Not at all Worrying too much about different things: 0 = Not at all Trouble relaxin = Not at all Being so restless that it is hard to sit still: 0 = Not at all Becoming easily annoyed or irritable: 0 = Not at all Feeling afraid as if something awful might happen: 0 = Not at all Total DAVIDA-7 score (0-4 normal; 5-9 mild; 10-14 moderate; 15-21 severe): 1 Source: Developed by Drs. Sudarshan Shipman, Elise Cook, Ammon Mcqueen and colleagues, with an educational steven from [employer]. DAVIDA-7 Assessment Billing DAVIDA-7 Assessment Tool: DAVIDA-7 Assessment 79140 Review of Systems Const All systems reviewed & are unremarkable except as noted in HPI and below Eyes Reports no additional complaints ENT Reports no additional complaints Card Reports no additional complaints Resp Reports no additional complaints GI Reports no additional complaints Reports no additional complaints Physical exam (Primary Care) Vital Signs: Last Vital Signs Temp 98.0 F 12/20/24 09:20 Pulse 67 12/20/24 09:20 Resp 18 12/20/24 09:20 BP 122/70 12/20/24 09:20 Pulse Ox 99 12/20/24 09:20 Oxygen Delivery Method Room Air 12/20/24 09:20 BMI result Body Mass Index 23.5 Tobacco/Smoking Status: Tobacco use Status Tobacco use date assessed 12/20/24 12/20/24 09:28 Patient Tobacco Use Status Never used Tobacco 12/20/24 09:28 e-Cigarette/Vaping Use Never Used 12/20/24 09:20 PHQ-9: PHQ-9 Score PHQ-9: Total score 1 12/20/24 09:28 Depression Screening Interpretation: Negative Thrive Assessment: Date of Thrive Assessment Date Thrive assessed 12/17/24 12/20/24 09:20 Currently or been in a relationship where the following occur: No concerns reported Const General: no acute distress HENMT Head: Yes normal to inspection Ears: TM's normal bilaterally General nose exam: Abnormal mucous membranes and turbinates present erythematous Face and sinus: Yes normal facial exam and No sinus tenderness Throat: Yes postnasal drainage Eyes General: appearance normal, both eyes and all related structures Neck Neck: Yes supple Resp Effort & Inspection: normal respiratory effort Auscultation: clear to auscultation bilaterally Cardio Rhythm: regular rhythm Heart sounds: S1 normal heart sound present and S2 normal heart sound present Coding Level of Care Code Est Pt Level 4 (36326) Diagnoses GRANT (dyspnea on exertion) R06.09 Seasonal allergies J30.2 Additional Codes DAVIDA-7 Assessment Billing - DAVIDA-7 Assessment Tool: DAVIDA-7 Assessment 25830 ([id number]) PHQ-9 - 17709 - PHQ-9 Billing: Yes ([id number]) Assessment & Plan Assessment & Plan (1) GRANT (dyspnea on exertion): Code(s): R06.09 - Other forms of dyspnea Category: Medical Plan: Obtain echocardiogram to evaluate for segmental wall motion abnormalities (2) Seasonal allergies: Code(s): J30.2 - Other seasonal allergic rhinitis Category: Medical Plan: Patient was advised to restart Zyrtec use Flonase nasal spray and follow-up with vehicle window tinter Orders: Orders CA echo transthoracic complete Today R06.09 - Other forms of dyspnea
--- OUTSIDE RECORDS SUMMARY | 2024-12-20 10:44 | XMS_ITS | Encounter Summary ---
Author Organization [facility] Address [address] [facility] [address] [place] [address] Phone Care Team Providers Care Reaming Machine Operator Name Role Phone Nikhil Rosario DO Primary Care Provider [phone] Tamiko Astudillo MD Primary Care Provider [phone] Encounter Details Date Type Department Care Team (Late st Contact Info) Description 01/08/2022 Procedure Pass [facility] Endoscopy Admitting Dept Virtual Department [address] [place] [id number] Social History Tobacco Use Types Packs/Day Years Used Date Smoking Tobacco: Never Smokeless Tobacco: Never Alcohol Use Standard Drinks/Week Comments Yes 4 (1 standard drink = 0.6 oz pur e alcohol) Sex and Gender Information Value Date Recorded Sex Assigned at Not on file Legal Sex Male 3:56 PM EST Gender Identity Not on file Sexual Orientation Not on file documented as of this encounter Plan of Treatment Not on file documented as of this encounter Visit Diagnoses Not on filedocumented in this encounter Care Teams Reaming Machine Operator Relationship Specialty Start Date End Date Nikhil Rosario DO PCP - General Family Medicine 06/01/17 08/17/22 Tamiko Astudillo MD [address] [place] [address] PCP - General Internal Medicine 08/18/22 documented as of this encounter Additional Source Comments The information contained in this document represents components of the legal health record. It is not the complete legal health record.[facility]
--- OUTSIDE RECORDS SUMMARY | 2024-12-20 10:44 | XMS_ITS | Encounter Summary ---
Author Organization [facility] Address [address] [facility] [address] [place] [address] Phone Care Team Providers Care Sleep Technologist Name Role Phone Tamiko Astudillo MD Primary Care Provider [phone] Encounter Details Date Type Department Care Team (Late st Contact Info) Description 08/18/2022 Procedure Pass [facility] Endoscopy Admitting Dept Virtual Department [address] [place] [address] Social History Tobacco Use Types Packs/Day Years Used Date Smoking Tobacco: Never Smokeless Tobacco: Never Alcohol Use Standard Drinks/Week Comments Yes 0 (1 standard drink = 0.6 oz pur e alcohol) 2 beers a month Education Answer Date Recorded Are you interested in more education? Not on clementine e 08/08/2022 Are you concerned about learning? Not on file 08/08/2022 No 08/08/2022 No 08/08/2022 Intimate Partner Violence Answer Date R ecorded Are you denied basic needs s uch as food, clothing, or medical care? No 08/18/2022 In the past 12 months have y ou been in a relationship with a person who hurts, threatens, or tries to control you? No 08/18/2022 Are you denied basic needs s uch as food, clothing, or medical care? No 08/18/2022 In the past 12 months have y ou been in a relationship with a person who hurts, threatens, or tries to control you? No 08/18/2022 Sex and Gender Information Value Date Recorded Sex Assigned at Not on file Legal Sex Male 3:56 PM EST Gender Identity Not on file Sexual Orientation Not on file documented as of this encounter Plan of Treatment Not on file documented as of this encounter Visit Diagnoses Not on filedocumented in this encounter Care Teams Sleep Technologist Relationship Specialty Start Date End Date Tamiko Astudillo MD [address] [facility] [place] [address] PCP - General Internal Medicine 08/18/22 documented as of this encounter Additional Source Comments The information contained in this document represents components of the legal health record. It is not the complete legal health record.[facility]
--- OUTSIDE RECORDS SUMMARY | 2024-12-20 10:44 | XMS_ITS | Clinical Summary ---
Author Organization [facility] Address [address] [facility] [address] [place] [address] Phone Care Team Providers Care Digital Asset Coordinator Name Role Phone Tamiko Astudillo MD Primary Care Provider [phone] Allergies Active Allergy Reactions Criticality Noted Date Comments Erythromycin 08/15/2022 Bloating/gas Medications atorvastatin (LIPITOR) 10 MG tablet Take 10 mg by mouth daily. Active grape seed extract (GRAPE SEED) 25 mg Cap Take by mouth. Active therapeutic multivitamin tablet Take 1 tablet by mouth daily. Active ZINC ORAL Take 1 tablet by mouth daily. Active ascorbic acid (VITAMIN C ORAL) Take 1 tablet by mouth daily. Active acetaminophen (TYLENOL) 500 MG tablet Take 500 mg by mouth every 6 (six) hours as needed for pain (specific location in comments). Active Social History Tobacco Use Types Packs/Day Years Used Date Smoking Tobacco: Never Smokeless Tobacco: Never Alcohol Use Standard Drinks/Week Comments Yes 0 (1 standard drink = 0.6 oz pur e alcohol) 2 beers a month Education Answer Date Recorded Are you interested in more education? Not on clementine e 08/08/2022 Are you concerned about learning? Not on file 08/08/2022 No 08/08/2022 No 08/08/2022 Digital Access Answer Date Recorded No 09/06/2022 No 09/06/2022 No 09/06/2022 Reliable internet access at home? Not on file 09/06/2022 Device with a working camera? Not on file Intimate Partner Violence Answer Date R ecorded [...] on file Sexual Orientation Not on file Last Filed Vital Signs Vital Sign Reading Time Taken Comments Blood Pressure 96/79 08/18/2022 8:40 AM EDT Pulse 47 08/18/2022 8:40 AM EDT Temperature 36.3 C (97.3 F) 08/18/2022 8:25 AM EDT Respiratory Rate 18 08/18/2022 8:40 AM EDT Oxygen Saturation 96% 08/18/2022 8:40 AM EDT Inhaled Oxygen Concentration - - Weight 74.8 kg (165 lb) 08/15/2022 8:26 AM EDT Height 185.4 cm (6' 1 ) 08/15/2022 8:26 AM EDT Body Mass Index 21.77 08/15/2022 8:26 AM EDT Plan of Treatment Health Maintenance Due Date Last Done Comments LIPID PANEL 1955 DEPRESSION SCREENING 1967 HEPATITIS C SCREENING 07/18/1973 COLOGUARD 07/18/2000 FIT TEST 07/18/2000 FOBT 07/18/2000 SIGMOIDOSCOPY 07/18/2000 VIRTUAL COLONOSCOPY 07/18/2000 PNEUMOCOCCAL VACCINES (50+ years) (1 of 1 - PCV) 07/18/2005 ZOSTER VACCINES (1 of 2) 07/18/2005 Adult Td,Tdap Booster 04/13/2024 04/13/2014 INFLUENZA VACCINE (#1) 2024 COVID-19 VACCINE (3 - 2024-2 6 season) 2024 09/14/2020, 08/17/2020 RSV VACCINE (1 - 1-dose 75+ series) 07/18/2030 COLONOSCOPY 08/18/2032 08/18/2022, 06/12/2017 COLORECTAL CANCER SCREENING 08/18/2032 SMOKING STATUS SCREENING (On ce After 26 Yrs) Completed 08/18/2022 HEPATITIS A VACCINES Aged Out No long er eligible based on patient's age to complete this topic HIB VACCINES Aged Out No longer eligi ble based on patient's age to complete this topic MENINGOCOCCAL VACCINES (ACWY) Aged Out No longer eligible based on patient's age to complete this topic MENINGOCOCCAL VACCINES (B) Aged Out N o longer eligible based on patient's age to complete this topic Medical Devices Implanted Type Area Terrazzo Grinder Device Identifier Shelf Expiration Date Model / Serial / Lot Right Hip Procedures Procedure Name Priority Date/Time Associated Diagnosis Comments ENDOSCOPY, COLON 08/18/2022 8:01 AM EDT from Last 3 Months or Most Recently Relevant to Health Maintenance Results * ENDOSCOPY, COLON (08/18/2022 8:01 AM EDT) Narrative Transcriptions Arias Vanessa MD - 08/18/2022 8:01 AM EDT [facility] Patient Name: Rafa Tatesarah Attending MD:: ARIAS VANESSA MD, Procedure Date: 08/18/2022 8:01 AM Date of : 1955 Age: 67 Admit Type: Outpatient Gender: Male Room: [place] [address] Referring MD: Tamiko Astudillo MD Exam Type: Colonoscopy Indications: Surveillance: Personal history of adenomatouspolyps on last colonoscopy > 5 years ago, Lastcolonoscopy: June 2017 Medications: Monitored Anesthesia Care Procedure: Informed consent was obtained from the patientafter discussion of the indications, limitations, alternatives, benefits, and risks of the procedure. Risks specifically discussed include but are not limited to medication reactions, missed lesions, bleeding, perforation, or the need for emergent surgery. Throughout the procedure, the patient's blood pressure, pulse, end-tidal CO2, and oxygensaturations were monitored continuously. The Olympus pediatric variable [id number] #3 was introduced through the anus and advanced tothe cecum, identified by the appendiceal orifice, ileocecal valve and palpation. The colonoscopy was performed without difficulty. The patient tolerated the procedure well. The quality of the bowel preparation was good. The ileocecal valve,appendiceal orifice, and rectum were photographed. Complications: No immediate complications. Estimated blood loss:None. Findings: The perianal and digital rectal examinations were normal. Pertinent negatives include normalsphincter tone. A few small-mouthed diverticula were found in the sigmoid colon and descending colon. Retroflexion in the right colon was performed. The exam was otherwise without abnormality ondirect and retroflexion views. Impression: - Diverticulosis in the sigmoid colon and in the descending colon. - The examination was otherwise normal on directand retroflexion views. - No specimens collected. Recommendation: - Repeat colonoscopy in 7 years for surveillance. - Continue present medications. ARIAS VANESSA MD 08/18/2022 8:23:23 AM This report has been signed electronically. Number of Addenda: 0 Note Initiated On: 08/18/2022 8:01 AM Procedure Code(s): --- Professional --- 23773, Colonoscopy, flexible; diagnostic, including collection of specimen(s) by brushing or washing, when performed (separateprocedure) --- Technical --- 84928, Colonoscopy, flexible; diagnostic, including collection of specimen(s) by brushing or washing, when performed (separateprocedure) Diagnosis Code(s): --- Professional --- Z86.010, Personal history of colonic polyps K57.30, Diverticulosis of large intestine without perforation or abscess without bleeding --- Technical --- Z86.010, Personal history of colonic polyps K57.30, Diverticulosis of large intestine without perforation or abscess without bleeding CPT copyright 2021 [employer]. All rights reserved. The codes documented in this report are preliminary and upon drying machine operator reviewmay be revised to meet current compliance requirements. Procedure Date: 08/18/2022 8:01:[address] [place] [address] Tamiko Astudillo MD GI PROCEDURE ORDERABLES Final Result from Last 3 Months or Most Recently Relevant to Health Maintenance Insurance MEDICARE PPO BLUE REPLACEMENT MEDICARE PPO BLUE REPLACEMENT MEDICARE PPO BLUE REPLACEMENT MEDICARE PPO BLUE REPLACEMENT MEDICARE PPO BLUE REPLACEMENT MEDICARE PPO BLUE REPLACEMENT MEDICARE PPO BLUE REPLACEMENT MEDICARE PPO BLUE REPLACEMENT Care Teams Digital Asset Coordinator Relationship Specialty Start Date End Date Tamiko Astudillo MD [address] [place] [address] PCP - General Internal Medicine 08/18/22 Additional Source Comments The information contained in this document represents components of the legal health record. It is not the complete legal health record.[facility]
--- OUTSIDE RECORDS SUMMARY | 2024-12-20 10:44 | XMS_ITS | Encounter Summary ---
Author Organization [facility] Address [address] [facility] [address] [place] [address] Phone Care Team Providers Care Commercial Real Estate Paralegal Name Role Phone Nikhil Rosario DO Primary Care Provider [phone] Tamiko Astudillo MD Primary Care Provider [phone] Encounter Details Date Type Department Care Team (Late st Contact Info) Description 06/12/2017 Procedure Pass [facility] Endoscopy Admitting Dept Virtual Department [address] [place] [address] Social History Tobacco Use Types Packs/Day Years [...] on filedocumented in this encounter Care Teams Commercial Real Estate Paralegal Relationship Specialty Start Date End Date Nikhil Rosario DO PCP - General Family Medicine 06/01/17 08/17/22 Tamiko Astudillo MD [address] [place] [address] PCP - General Internal Medicine 08/18/22 documented as of this encounter Additional Source Comments The information contained in this document represents components of the legal health record. It is not the complete legal health record.[facility]
== END 2024-12-20 10:10 | disposition home or self-care (01) ==
LOC: HO.HMCC 09:19
PROVIDERS: PCP Internal Medicine; Visit Provider Internal Medicine
DX: R06.09 Other forms of dyspnea (principal); J30.2 Other seasonal allergic rhinitis

== ENCOUNTER → 2024-12-20 09:18 | Outpatient (BNVA) | payer MEDICARE, SELFPAY | PROVIDERS: PCP Internal Medicine; Visit Provider Internal Medicine | DX: R06.09 Other forms of dyspnea (principal); J30.2 Other seasonal allergic rhinitis; R51.9 Headache, unspecified | CPT/HCPCS: 96127; 99212 ==

== ENCOUNTER → 2025-03-21 09:05 | Outpatient (REF) | payer MEDICARE, SELFPAY ==
--- NOTE | 2025-03-21 09:08 | CA_ITS ---
Transthoracic Echocardiogram Patient (Last, First, Middle): Rafa Cevallos E Gender: M Date of : 1955 Age: 69 Procedure Date: 03/21/2025 Procedure Type: Transthoracic Echocardiogram Location: OP Height: 182. cm Weight: 74.84 kg BSA: 1.96 m2 Heart Rate: 52 bpm BP: 132 / 65 mmHg Engineering Recruiter: COLLINS Referring MD: Tamiko Astudillo MD Assembler Lay Ups: Jesus Alberto Galeas MD Symptoms: R06.09 - Other forms of dyspnea Study Quality: Fair ECG Rhythm: Bradycardia Conclusions: - 1. Normal LV ejection fraction of 60 65% with grade 1 diastolic dysfunction 2. Mildly dilated left atrium 3. Normal cardiac valvular Dopplers 4. Normal LV systolic pressure 5. Upper limits of normal ascending aortic size 6. No gross pericardial effusion Findings Left Ventricle Normal left ventricular size, thickness, and systolic function. The visually estimated ejection fraction is between 60-65%. Spectral Doppler is indicative of an impaired relaxation filling pattern. E/E prime ratio is <8, consistent with normal filling pressures. Evidence suggests grade I (mild) diastolic dysfunction. Right Ventricle Normal right ventricular cavity size and systolic function. Atria The left atrium is mildly dilated. There is no evidence of interatrial shunt. The right atrium is normal in size. Aortic Valve Normal aortic valve structure and function. There is no aortic valve stenosis. There is no aortic valve regurgitation. Mitral Valve Normal mitral valve structure and function. There is trace mitral valve regurgitation. There is no mitral valve stenosis. Pulmonic Valve The pulmonic valve is likely normal. There is trace pulmonic valve regurgitation. Tricuspid Valve Normal tricuspid valve structure. There is trace tricuspid valve regurgitation. The right ventricular systolic pressure is normal. The right ventricular systolic pressure is 19 mmHg. Normal right atrial pressure. There is no evidence of pulmonary hypertension. Great Vessels All visible segments of the aorta are normal in size. The pulmonary artery was not well visualized. There is no dilatation of the ascending aorta measuring 3.50 cm. Venous The inferior vena cava is normal in size and collapses greater than 50% with inspiration. Pericardium/Pleural There is no evidence of pericardial effusion. Prior Study Comparison No prior study available for comparison. Measurements 2D Linear Measurements IVSd: 1.09 0.6-0.9/0.6-1.0 cm LVIDd: 3.98 3.9-5.3/4.2-5.9 cm LVIDd Index: 2.03 2.4-3.2/2.2-3.1 cm/m2 LVIDs: 2.84 2.0-3.6 cm LVPWd: 0.94 0.7-1.1 cm LA Diam: 3.10 2.7-3.8/3.0-4.0 cm LAIDs Index: 1.58 1.5-2.3 cm/m2 LV Mass: 160.20 67-162/88-224 g LV Mass Index: 81.73 43-95/49-115 g/m2 LVOT Diam: 2.00 3.0+(-)1.3 cm 2D Systolic Function EF 4C: 65.70 >55% EF 2C: 54.00 >55% EF BiP: 60.30 >55% Mitral Valve MV Pk E: 0.42 MV PK A: 0.47 MV Decel Time: 289.00 E/A: 0.90 E'Lateral: 7.71 E'Medial: 5.34 E/E' Med: 7.80 E/E' Lat: 5.40 PHT: 85.00 MVA PHT: 2.59 Decel T[place]air: 1.44 Aortic Valve AoV Pk Wilton: 1.03 AoV Mn Wilton: 0.72 AoV VTI: 0.23 AoV Pk Grad: 4.00 Aov Mn Grad: 2.00 DALE Cont.VTI: 2.81 LVOT LVOT Pk Wilton: 0.98 LVOT Mn Wilton: 0.64 LVOT VTI: 0.21 LVOT Pk Grad: 4.00 LVOT Mn Grad: 2.00 LVOT Diam: 2.00 LVOT Area: 3.14 Diastolic Function MV Pk E: 0.42 MV Pk A: 0.47 E/A: 0.90 E'Medial: 5.34 E/E' Med: 7.80 E' Laterial: 7.71 E/E' Lat: 5.40 Right Ventricle TAPSE (mm): 19.10 TVS' Wilton: 8.15 Tricuspid Valve TR Pk Wilton: 2.00 TR Pk Grad: 16.00 RA Press: 3.00 RVSP: 19.00 Great Vessels Aorta Sinus of Valsalva: 3.60 2.0-3.5 cm Ao Asc: 3.50 2.1-3.4 cm Ao Arch: 2.90 Pulmonary Veins Pulm Vein S/D 2.10 Pulmonary Valve PV Pk Wilton: 0.64 Peak PV Grad: 2.00 Updated in Other Vendor System with Status of Final Jesus Alberto Galeas MD electronically signed on 03/21/2025 12:03:22 PM with status of Final
== END ==
LOC: HO.CARD 09:05
PROVIDERS: PCP Internal Medicine; Visit Provider Internal Medicine
DX: R06.09 Other forms of dyspnea (principal)
CPT/HCPCS: 93306

== ENCOUNTER → 2025-03-21 09:08 | Outpatient (BNV) | payer MEDICARE, SELFPAY | PROVIDERS: PCP Internal Medicine; Visit Provider Internal Medicine Cardiovascular Disease | DX: I51.7 Cardiomegaly (principal); R06.02 Shortness of breath | CPT/HCPCS: 93306 ==

== ENCOUNTER 2025-03-28 12:43 | Outpatient (AMB) | payer MEDICARE, SELFPAY ==
--- NOTE | 2025-03-28 13:14 | A.OFFPC_ITS ---
Vital Signs 03/28/25 13:15 Height 5 ft 9 in Weight 163 lb BMI 24.1 BP 118/66 Blood Pressure Location Lt brachial Position Sitting Respiration 15 Pulse 70 Pulse Source Pulse Oximeter Temp 98.0 F Temp Source Oral Pulse Oximetry (%) 97 Oxygen Delivery Method Room Air Intake Visit Reasons: ED F/U visits Intake Note: Pt is here today for a ER follow up. Pt states that he has echo done last week result is in the system. Allergies Penicillins Allergy (Unknown, Verified 03/28/25 13:32) Unknown amoxicillin Allergy (Verified 03/28/25 13:32) very fatique erythromycin base Adverse Reaction (Unknown, Verified 03/28/25 13:32) stomach issues Medication List - Last Reconciled 03/28/25 by Tamiko Astudillo MD atorvastatin 10 mg PO .TIW lorazepam 0.5 mg PO BEDTIME PRN Tobacco use date assessed: 03/28/25 Fall risk assessment: No Falls in past year Last assessed Fall Risk: 03/28/25 Dental Screening Dental Screen Date: 12/20/24 HPI ED F/U visits HPI Details Patient presents for the follow-up of ER visit 6 weeks ago for episode of lightheadedness dizziness and some nausea. Cardiac workup was negative. Patient denies any recurrent symptoms. He has been physically active walking daily without exercise induced chest pain or shortness breath. [facility] Medical History (Updated 03/28/25 @ 13:54 by Tamiko Astudillo MD) Seasonal allergies GRANT (dyspnea on exertion) Gout Abdominal pain Annual physical exam Chronic sinusitis Hyperlipidemia Surgical History H/O colonoscopy Family History Father CVD (cardiovascular disease) Mother No problems noted. Social History Housing: House Patient Tobacco Use Status: Never used Tobacco e-Cigarette/Vaping Use: Never Used service: No Current occupational status: employed Cognitive needs: No Hearing needs: No Vision needs: Yes Questionnaire Thrive Questionnaire Date Thrive assessed: 12/17/24 I am a: Patient What is your living situation today?: I have a steady place to live Within the past 12 months, did the food you bought not last and you didn't have the money to get more?: Never true Within the past 12 months, did you worry whether your food would run out before you got money to buy more?: Never true Do you have trouble paying for medicines?: No Do you have trouble getting transportation to medical appointments?: No Do you have trouble paying your heating and electricity bill?: No Do you have trouble taking care of your child, family member or friend?: No Do you have trouble with day-to-day activities such as bathing, preparing meals, shopping, managing finances, etc.?: No Are you currently unemployed and looking for a job?: No Are you interested in more education?: No Please select the resources that you would like help with: None Currently or been in a relationship where the following occur: No concerns reported THRIVE Score: 0 DAVIDA-7 AMB Questionnaire DAVIDA-7 Date DAVIDA - 7 assessed: 12/20/24 Source: Developed by Drs. Sudarshan Shipman, Elise Cook, Ammon Mcqueen and colleagues, with an educational steven from [employer]. Review of Systems Const All systems reviewed & are unremarkable except as noted in HPI and below ENT Reports no additional complaints Card Reports no additional complaints Resp Reports no additional complaints GI Reports no additional complaints Reports no additional complaints Physical exam (Primary Care) Vital Signs: Last Vital Signs Temp 98.0 F 03/28/25 13:15 Pulse 70 03/28/25 13:15 Resp 15 03/28/25 13:15 BP 118/66 03/28/25 13:15 Pulse Ox 97 03/28/25 13:15 Oxygen Delivery Method Room Air 03/28/25 13:15 BMI result Body Mass Index 24.1 Tobacco/Smoking Status: Tobacco use Status Tobacco use date assessed 03/28/25 03/28/25 13:35 Patient Tobacco Use Status Never used Tobacco 03/28/25 13:15 e-Cigarette/Vaping Use Never Used 03/28/25 13:15 Thrive Assessment: Date of Thrive Assessment Date Thrive assessed 12/17/24 03/28/25 13:15 Currently or been in a relationship where the following occur: No concerns reported Const General: no acute distress HENMT Head: Yes normal to inspection Throat: Yes posterior oropharynx normal Eyes General: appearance normal, both eyes and all related structures Resp Effort & Inspection: normal respiratory effort Auscultation: clear to auscultation bilaterally Cardio Rhythm: regular rhythm Heart sounds: S1 normal heart sound present and S2 normal heart sound present GI Inspection: Yes normal to inspection Palpation (GI): Soft to palpation Percussion: Yes normal to percussion Auscultation: normal bowel sounds Coding Level of Care Code Est Pt Level 4 (60004) Diagnoses Hyperlipidemia E78.5 Hyperthyroidism E05.90 Osteoporosis M81.0 Assessment & Plan Assessment & Plan (1) Hyperlipidemia: Code(s): E78.5 - Hyperlipidemia, unspecified Category: Medical Plan: Continue statin, patient will return for fasting blood work (2) Hyperthyroidism: Comment: Subclinical hyperthyroid Code(s): E05.90 - Thyrotoxicosis, unspecified without thyrotoxic crisis or storm Category: Medical Plan: Monitor TSH and free T4 level (3) Osteoporosis: Comment: DEXA T score -3.1, 09/2022 , history of R hip fracture, pt declined tx 01/2024 Code(s): M81.0 - Age-related osteoporosis without current pathological fracture Category: Medical Plan: Patient declined treatment for osteoporosis. he will continue vitamin-D supplement and weight-bearing exercises Orders: Orders Comprehensive [place]. Panel Fast Today E05.90 - Thyrotoxicosis, unspecified without thyrotoxic crisis or storm, E78.5 - Hyperlipidemia, unspecified, R06.09 - Other forms of dyspnea UA w Microscopic Today E05.90 - Thyrotoxicosis, unspecified without thyrotoxic crisis or storm, E78.5 - Hyperlipidemia, unspecified, R06.09 - Other forms of dyspnea TSH reflex Free T4 Today E55.9 - Vitamin D deficiency, unspecified, M81.0 - Age-related osteoporosis without current pathological fracture Vitamin D 25-OH Total Today E55.9 - Vitamin D deficiency, unspecified, M81.0 - Age-related osteoporosis without current pathological fracture Parathyroid Hormone Intact Today E55.9 - Vitamin D deficiency, unspecified, M81.0 - Age-related osteoporosis without current pathological fracture PSA,Total (Free>4and<10) Today N40.0 - Benign prostatic hyperplasia without lower urinary tract symptoms Complete Blood Count Auto Diff Today E05.90 - Thyrotoxicosis, unspecified without thyrotoxic crisis or storm, E78.5 - Hyperlipidemia, unspecified, R06.09 - Other forms of dyspnea Lipid Panel Today E05.90 - Thyrotoxicosis, unspecified without thyrotoxic crisis or storm, E78.5 - Hyperlipidemia, unspecified, R06.09 - Other forms of dyspnea
[2025-03-28 13:15] VITALS: BP 118/66; PULSE 70; RESP 15; TEMP 36.7; O2SAT 97; BMI 24.1
--- OUTSIDE RECORDS SUMMARY | 2025-03-28 16:30 | XMS_ITS | Encounter Summary ---
Author Organization [facility] Address [address] [facility] [address] [place] [address] Phone Care Team Providers Care Reliability Technologist Name Role Phone Nikhil Rosario DO Primary Care Provider [phone] Tamiko Astudillo MD Primary Care Provider [phone] Encounter Details Date Type Department Care Team (Late st Contact Info) Description 06/12/2017 Procedure Pass [facility] Endoscopy Admitting Dept Virtual Department [address] [place] [address] Social History Tobacco Use Types Packs/Day Years [...] on filedocumented in this encounter Care Teams Reliability Technologist Relationship Specialty Start Date End Date Nikhil Rosario DO PCP - General Family Medicine 06/01/17 08/17/22 Tamiko Astudillo MD [address] [place] [address] PCP - General Internal Medicine 08/18/22 documented as of this encounter Additional Source Comments The information contained in this document represents components of the legal health record. It is not the complete legal health record.[facility]
--- OUTSIDE RECORDS SUMMARY | 2025-03-28 16:30 | XMS_ITS | Clinical Summary ---
Author Organization [facility] Address [address] [facility] [address] [place] [address] Phone Care Team Providers Care Twister Operator Name Role Phone Tamiko Astudillo MD Primary Care Provider [phone] Allergies Active Allergy Reactions Criticality Noted Date [...] this topic Medical Devices Implanted Type Area Reduction Plant Supervisor Device Identifier Shelf Expiration Date Model / Serial / Lot Right Hip Procedures Procedure Name Priority Date/Time Associated Diagnosis Comments ENDOSCOPY, COLON 08/18/2022 8:01 AM EDT from Last 3 Months or Most Recently Relevant to Health Maintenance Results * ENDOSCOPY, COLON (08/18/2022 8:01 AM EDT) Narrative Transcriptions Arias Vanessa MD - 08/18/2022 8:01 AM EDT [facility] Patient Name: Rafa Tatesarah Attending MD:: ARIAS VANESSA MD, Procedure Date: 08/18/2022 8:01 AM Date of : 1955 Age: 67 Admit Type: Outpatient Gender: Male Room: [place] [address] Referring MD: Tamiko Astudillo MD Exam Type: [...] 8:01 AM Procedure Code(s): --- Professional --- 90749, Colonoscopy, flexible; diagnostic, including collection of specimen(s) by brushing or washing, when performed (separateprocedure) --- Technical --- 04966, Colonoscopy, flexible; diagnostic, including collection of specimen(s) by brushing or washing, when performed (separateprocedure) Diagnosis Code(s): --- Professional --- Z86.010, Personal history of colonic polyps K57.30, Diverticulosis of large intestine without perforation or abscess without bleeding --- Technical --- Z86.010, Personal history of colonic polyps K57.30, Diverticulosis of large intestine without perforation or abscess without bleeding CPT copyright 2021 [employer] [employer]. All rights reserved. The codes documented in this report are preliminary and upon bandsaw operator reviewmay be revised to meet current compliance requirements. Procedure Date: 08/18/2022 8:01:[address] [place] [address] Tamiko Astudillo MD GI PROCEDURE ORDERABLES Final Result from Last 3 Months or Most Recently Relevant to Health Maintenance Insurance MEDICARE PPO BLUE REPLACEMENT MEDICARE PPO BLUE REPLACEMENT MEDICARE PPO BLUE REPLACEMENT MEDICARE PPO BLUE REPLACEMENT MEDICARE PPO BLUE REPLACEMENT MEDICARE PPO BLUE REPLACEMENT MEDICARE PPO BLUE REPLACEMENT MEDICARE PPO BLUE REPLACEMENT Care Teams Twister Operator Relationship Specialty Start Date End Date Tamiko Astudillo MD [address] [place] [address] PCP - General Internal Medicine 08/18/22 Additional Source Comments The information contained in this document represents components of the legal health record. It is not the complete legal health record.[facility]
--- OUTSIDE RECORDS SUMMARY | 2025-03-28 16:30 | XMS_ITS | Encounter Summary ---
Author Organization [facility] Address [address] [facility] [address] [place] [address] Phone Care Team Providers Care Help Desk Technician Name Role Phone Tamiko Astudillo MD Primary Care Provider [phone] Encounter Details Date Type Department Care Team (Late st Contact Info) Description 08/18/2022 Procedure Pass [facility] Endoscopy Admitting Dept Virtual Department [address] [place] [address] Social History Tobacco Use Types Packs/Day Years [...] on filedocumented in this encounter Care Teams Help Desk Technician Relationship Specialty Start Date End Date Tamiko Astudillo MD [address] [place] [address] PCP - General Internal Medicine 08/18/22 documented as of this encounter Additional Source Comments The information contained in this document represents components of the legal health record. It is not the complete legal health record.[facility]
--- OUTSIDE RECORDS SUMMARY | 2025-03-28 16:30 | XMS_ITS | Encounter Summary ---
Author Organization [facility] Address [address] [place] [phone] Phone Care Team Providers Care Stock Crane Operator Name Role Phone Nikhil Rosario DO Primary Care Provider Tamiko Astudillo MD Primary Care Provider [phone] Encounter Details Date Type Department Care Team (Late st Contact Info) Description 01/08/2022 Procedure Pass [facility] Endoscopy Admitting Dept Virtual Department [address] [place] [address] Social History Tobacco Use Types Packs/Day Years [...] on filedocumented in this encounter Care Teams Stock Crane Operator Relationship Specialty Start Date End Date Nikhil Rosario DO PCP - General Family Medicine 06/01/17 08/17/22 Tamiko Astudillo MD [address] [place] [id number] PCP - General Internal Medicine 08/18/22 documented as of this encounter Additional Source Comments The information contained in this document represents components of the legal health record. It is not the complete legal health record.[facility]
== END 2025-03-28 13:59 | disposition home or self-care (01) ==
LOC: HO.HMCC 12:44
PROVIDERS: PCP Internal Medicine; Visit Provider Internal Medicine
DX: E78.5 Hyperlipidemia, unspecified (principal); E05.90 Thyrotoxicosis, unspecified without thyrotoxic crisis or storm; M81.0 Age-related osteoporosis without current pathological fracture

== ENCOUNTER → 2025-03-28 12:43 | Outpatient (BNVA) | payer MEDICARE, SELFPAY | PROVIDERS: PCP Internal Medicine; Visit Provider Internal Medicine | DX: M81.0 Age-related osteoporosis without current pathological fracture (principal); E05.90 Thyrotoxicosis, unspecified without thyrotoxic crisis or storm; E78.5 Hyperlipidemia, unspecified | CPT/HCPCS: 99212 ==